=== PATIENT | male | born 1985 | race Caucasian/White ===

== ENCOUNTER 2021-04-13 22:25 | Emergency (ER) | payer OTHER ==
[~2021-04-13] VITALS: Ht 177.8 cm; Wt 79.4 kg
[2021-04-13 22:25] VITALS: BP 149/75
[2021-04-13] MEDS ORDERED: IBUPROFEN 600 MG TABLET ONE (22:56)
[2021-04-13] MEDS ORDERED: IBUPROFEN 600 MG TABLET PO ONE (23:00)
[2021-04-13] MEDS ORDERED: HYDR-4209 PO (23:29)
== END 2021-04-14 00:01 | disposition home or self-care (01) ==
LOC: ER 22:29
DX: M54.5 Low back pain (principal); F17.210 Nicotine dependence, cigarettes, uncomplicated; V23.4XXA Motorcycle driver injured in collision with car, pick-up truck or van in traffic accident, initial encounter; Y93.55 Activity, bike riding; Y92.89 Other specified places as the place of occurrence of the external cause; Y99.8 Other external cause status
CPT/HCPCS: 72110-TC